=== PATIENT | female | born 1980 | race Caucasian/White ===

== ENCOUNTER 2017-01-24 09:44 | Outpatient (CLI) | payer BC ==
[2017-01-24 10:21] LABS: #Basophils 0.1 thou/uL (0.0-0.2); #Eosinphils 0.1 thou/uL (0.0-0.7); #Lymphocytes 2.4 thou/uL (1.20-3.40); #Monocytes 0.5 thou/uL (0.11-0.59); #Neutrophils 5.2 thou/uL (1.40-6.50); %Basophils 1.4 % (0.0-1.0); %Eosinophils 1.8 % (0.0-10.0); %Lymphocytes 28.3 % (21.0-51.0); %Monocytes 6.4 % (0.0-10.0); %Neutrophils 62.2 % (42.0-75.0); Hemoglobin 13.6 g/dL (12.0-16.0); Mean Corpuscular HGB CONC 34.6 g/dL (32.0-36.0); Mean Corpuscular Volume 89.6 fl (81.0-99.0); Mean Platelet Volume 8.9 fL (7.4-10.4); Platelet Count 307 thou/uL (130-400); RBC Distribution Width 11.6 % (11.5-14.5); Red Blood Cell (RBC) Count 4.37 mill/uL (4.20-5.40); White Blood Cell (WBC) Count 8.4 thou/uL (4.8-10.8)
[2017-01-24 10:35] LABS: ALT (SGPT) 14 U/L (0-55); AST (SGOT) 18 U/L (5-34); Albumin 4.2 g/dL (3.5-5.0); Alkaline Phosphatase 80 U/L (40-150); Anion Gap 10 mmol/L (10-20); BUN (Urea Nitrogen) 11 mg/dL (7.0-18.7); Bilirubin, Total 0.5 mg/dL (0.2-1.2); Calc. Creatinine Clearance 0 mL/min (70-130); Calcium 8.8 mg/dL (7.8-10.44); Carbon Dioxide 27 mmol/L (22-29); Cardiac Risk 3.8 (Less than 4.5); Chloride 108 mmol/L (98-107); Cholesterol 168 mg/dL (< 200 Desired); Estimated GFR-MDRD 85; Globulin 2.6 g/dL (2.4-3.5); Glucose 75 mg/dL (70-105); HDL Cholesterol 44 mg/dL (>60 Neg Risk); LDL Cholesterol, Calculated 102 mg/dL; Potassium 4.2 mmol/L (3.5-5.1); Protein, Total 6.8 g/dL (6.0-8.3); Sodium 141 mmol/L (136-145); Triglycerides 111 mg/dL (Less than 150)
[2017-01-24 10:50] LABS: Thyroid Stimulating Hormone 1.2106 uIU/mL (0.35-4.94)
[2017-01-24 18:03] LABS: HIV (1/2) Antibody/Antigen Non-Reactive (NonReactive); HIV 1/2 INDEX 0.13 S/CO (<1.00)
== END 2017-01-24 09:45 | disposition home or self-care (01) ==
LOC: HPCALD 09:44
PROVIDERS: ATTEND Physician Assistant
DX: R53.82 Chronic fatigue, unspecified (principal); Z72.51 High risk heterosexual behavior
CPT/HCPCS: 36415; 80053; 80061; 84443; 85025; 86592; 87389

== ENCOUNTER 2018-11-07 16:18 | Outpatient (CLI) | payer OTHER ==
--- NOTE | 2018-11-07 16:52 | RAD ---
RIGHT WRIST THREE VIEWS: Date: 11-07-18 FINDINGS: No fracture, dislocation, or carpal abnormality was seen. The carpal relationship seemed normal. The distal radius and ulna appear normal. IMPRESSION: No acute finding. POS: HOME
== END 2018-11-07 16:19 | disposition home or self-care (01) ==
LOC: BURRAD 16:18
PROVIDERS: ATTEND Nurse Practitioner Family
DX: M25.531 Pain in right wrist (principal)

== ENCOUNTER 2019-01-02 14:44 | Outpatient (CLI) | payer OTHER | END 2019-01-02 14:45 | disposition home or self-care (01) | LOC: BUREKG 14:44 | PROVIDERS: ATTEND Physician Assistant | DX: R06.89 Other abnormalities of breathing (principal) | CPT/HCPCS: 93005; 93010 ==

== ENCOUNTER 2022-04-29 16:39 | Emergency (ER) | payer BC, OTHER ==
[2022-04-29 17:16] LABS: #Basophils 0.1 thou/uL (0.0-0.2); #Eosinphils 0.2 thou/uL (0.0-0.7); #Lymphocytes 2.9 thou/uL (1.20-3.40); #Monocytes 0.6 thou/uL (0.11-0.59); #Neutrophils 4.7 thou/uL (1.40-6.50); %Basophils 1.3 % (0.0-1.0); %Eosinophils 1.9 % (0.0-10.0); %Lymphocytes 34.7 % (21.0-51.0); %Monocytes 6.9 % (0.0-10.0); %Neutrophils 55.3 % (42.0-75.0); Hemoglobin 13.1 g/dL (12.0-16.0); Mean Corpuscular HGB CONC 34.1 g/dL (32.0-36.0); Mean Corpuscular Hemoglobin 30.2 pg (27.0-31.0); Mean Corpuscular Volume 88.8 fL (78.0-98.0); Mean Platelet Volume 9.1 fL (7.4-10.4); Platelet Count 320 thou/uL (130-400); RBC Distribution Width 11.7 % (11.5-14.5); Red Blood Cell (RBC) Count 4.32 mill/uL (4.20-5.40); White Blood Cell (WBC) Count 8.5 thou/uL (4.8-10.8)
[2022-04-29 17:33] LABS: ALT (SGPT) 17 U/L (8-55); AST (SGOT) 18 U/L (5-34); Albumin 4.1 g/dL (3.5-5.0); Alkaline Phosphatase 65 U/L (40-110); Anion Gap 13 mmol/L (10-20); BUN (Urea Nitrogen) 13 mg/dL (7.0-18.7); Bilirubin, Total 0.3 mg/dL (0.2-1.2); Calc. Creatinine Clearance 0 mL/min (70-130); Calcium 9.2 mg/dL (7.8-10.44); Carbon Dioxide 20 mmol/L (22-29); Chloride 110 mmol/L (98-107); Estimated GFR 91; Globulin 2.9 g/dL (2.4-3.5); Glucose 107 mg/dL (70-105); Potassium 4.3 mmol/L (3.5-5.1); Sodium 139 mmol/L (136-145)
[2022-04-29] MEDS ORDERED: Aspirin Chewable 81 MG TAB ONE (17:43)
[2022-04-29 20:00] LABS: Troponin I Less than 0.010 ng/mL (< 0.028)
== END 2022-04-29 20:44 | disposition home or self-care (01) ==
LOC: BURERS 16:39
DX: R07.9 Chest pain, unspecified (principal); R06.02 Shortness of breath
CPT/HCPCS: 71045; 71275; 80053; 83880; 84484; 85025; 93005